=== PATIENT | male | born 1960 | race Caucasian/White ===

== ENCOUNTER → 2018-01-13 | Outpatient (CLI) | payer MEDICAID ==
[~2018-01-13] MED LIST: ADULT LOW DOSE81 MG; ADULT LOW DOSE81 MG PO; ASPIRIN325; ASPIRIN325 PO; BACTRIM DS TAB1 EACH PO; CARVEDILOL6.25 MG PO; CIPRO500 MG PO; CIPROFLOXACIN500 M1 PO; COREG PO; COZAAR 25 MG TA25 M1 PO; EFFIENT10 MG; FLOMAX0.4 MG PO; GABAPENTIN 100100 MG PO; GLIPIZIDE 10 MG10 MG PO; GLUCOPHAGE850 MG PO; GLYBURIDE-METF1 EAC1 PO; HYDROCODON-ACE1 EACH PO; IBUPROFEN 600600 M1; KEFLEX500 M1 PO; LEVAQUIN 500 M500 M7 PO; LIPITOR 20 MG T20 M1 PO; LIPITOR80 MG; LISINOPRIL2.5 MG; LISINOPRIL20 MG PO; NEXIUM; NEXIUM 40 MG CA40 M1 PO; NEXIUM40 MG PO; NITROGLYCERIN0.4 MG; NORCO 5-325 TA1 EACH PO; NYSTATIN15 GM TOP; PEPCID20 MG PO; PLAVIX 75 MG TA75 MG; QUINAPRIL; SIMVASTATIN40 MG; TOPROL XL25 MG; ZANTAC 150MG T150 MG PO; ZOLOFT 50 MG TA50 M1; ZYRTEC 10 MG TA10 MG PO
== END ==
LOC: M.ULTRA 07:59
DX: R16.0 Hepatomegaly, not elsewhere classified (principal); K76.0 Fatty (change of) liver, not elsewhere classified

== ENCOUNTER 2018-02-03 16:38 | Inpatient (IN) | payer MEDICAID ==
[~2018-02-03] VITALS: Ht 182.9 cm; Wt 99.3 kg
[~2018-02-03 16:38] MED LIST changes: -COZAAR 25 MG TA25 M1 PO; -GABAPENTIN 100100 MG PO; -GLYBURIDE-METF1 EAC1 PO; -KEFLEX500 M1 PO; -LIPITOR 20 MG T20 M1 PO; -PEPCID20 MG PO; -ZANTAC 150MG T150 MG PO; -ZYRTEC 10 MG TA10 MG PO
[2018-02-03 16:44] VITALS: BP 135/96
[2018-02-03] MEDS ORDERED: COZAAR 25 MG TA25 M1 PO (16:48)
[2018-02-03] MEDS ORDERED: ZANTAC 150MG T150 MG PO (16:49)
[2018-02-03] MEDS ORDERED: LIPITOR 20 MG T20 M1 PO (16:49)
[2018-02-03] MEDS ORDERED: FLOMAX0.4 MG PO (16:49)
[2018-02-03] MEDS ORDERED: GLYBURIDE-METF1 EAC1 PO (16:50)
[2018-02-03] MEDS ORDERED: ZYRTEC 10 MG TA10 MG PO (16:50)
[2018-02-03] MEDS ORDERED: GABAPENTIN 100100 MG PO (16:50)
[2018-02-03 17:35] LABS: ABSOLUTE BASOPHILS 0.1 thou/uL (0.0-0.2); ABSOLUTE EOSINOPHILS 0.1 thou/uL (0.0-0.7); ABSOLUTE LYMPHOCYTES 2.3 thou/uL (0.8-5.3); ABSOLUTE MONOCYTES 0.8 thou/uL (0.0-1.2); ABSOLUTE NEUTROPHILS 6.7 thou/uL (1.6-8.1); BASOPHILS 1.2 %; EOSINOPHILS 1.2 %; HEMATOCRIT 48.1 % (42.0-52.0); HEMOGLOBIN 16.2 gm/dL (14.0-18.0); LYMPHOCYTES 22.9 %; MCH 30.4 pg (26.0-34.0); MCHC 33.6 g/dL (28.0-37.0); MCV 90.6 fL (80.0-100.0); MONOCYTES 7.8 %; MPV 8.3 fl. (7.2-11.1); NUCLEATED RBCS 0 /100WBC; PLATELET COUNT* 210 thou/uL (150-400); POLYS 66.9 %; RBC 5.31 mil/uL (4.50-6.00); RDW-CV 13.2 % (10.5-14.5); WBC 10.1 thou/uL (4.0-11.0)
[2018-02-03 17:46] LABS: ANION GAP 8 mmol/L (7-16); BUN 8 mg/dL (7-18); CALCIUM 8.1 mg/dL (8.5-10.1); CHLORIDE 99 mmol/L (98-107); CO2 26 mmol/L (21-32); CREATININE 0.9 mg/dL (0.6-1.3); GLUCOSE 295 mg/dL (70-99); POTASSIUM 3.6 mmol/L (3.5-5.1); SODIUM 133 mmol/L (136-145)
[2018-02-03 17:53] LABS: ALBUMIN 3.2 g/dL (3.4-5.0); ALKALINE PHOSPHATASE 85 U/L (46-116); MAGNESIUM 1.6 mg/dL (1.8-2.4); SGOT 25 U/L (15-37); SGPT 57 U/L (30-65); TOTAL BILIRUBIN 0.8 mg/dL (<0.1-1.0); TOTAL PROTEIN 7.7 g/dL (6.4-8.2); TROPONIN-I LEVEL <0.06 ng/mL (<0.06)
[2018-02-03 19:55] LABS: URINE BILIRUBIN NEGATIVE (Negative); URINE BLOOD NEGATIVE (Negative); URINE CLARITY CLEAR; URINE COLOR YELLOW; URINE GLUCOSE-RANDOM 3+ (Negative); URINE KETONES NEGATIVE (Negative); URINE LEUKOCYTES NEGATIVE (Negative); URINE NITRITE NEGATIVE (Negative); URINE PROTEIN NEGATIVE (Negative); URINE SPECIFIC GRAVITY 1.015 (1.005-1.030)
[2018-02-04 05:45] VITALS: BP 112/74
[2018-02-04 06:30] VITALS: BP 131/89
[2018-02-04 08:24] VITALS: BP 122/73
[2018-02-04 12:50] VITALS: BP 104/65
[2018-02-04 16:10] VITALS: BP 106/62
[2018-02-04 20:00] VITALS: BP 116/71
[2018-02-05] VITALS: BP 88/51
[2018-02-05 04:00] VITALS: BP 115/81
[2018-02-05 04:40] LABS: HEMATOCRIT 43.4 % (42.0-52.0); HEMOGLOBIN 14.6 gm/dL (14.0-18.0); MCH 30.2 pg (26.0-34.0); MCHC 33.6 g/dL (28.0-37.0); MCV 89.7 fL (80.0-100.0); MPV 8.3 fl. (7.2-11.1); RBC 4.84 mil/uL (4.50-6.00); RDW-CV 13.1 % (10.5-14.5); WBC 9.1 thou/uL (4.0-11.0)
[2018-02-05 04:58] LABS: ALBUMIN 2.9 g/dL (3.4-5.0); CALCIUM 8.4 mg/dL (8.5-10.1); CREATININE 0.9 mg/dL (0.6-1.3); POTASSIUM 4.4 mmol/L (3.5-5.1); TOTAL BILIRUBIN 0.8 mg/dL (<0.1-1.0); TOTAL PROTEIN 6.4 g/dL (6.4-8.2)
[2018-02-05 09:00] VITALS: BP 122/74
--- NOTE | 2018-02-05 13:04 | EKG ---
[place] [address] ELECTROCARDIOGRAM REPORT Name: KEVIN BPATISTE Room: [address] IN [facility]#: [id number] Admission: 02/04/18 Attend Phys: Molly Mallory Discharge: Date of : 60 Report #: [id number] THIS REPORT FOR: //name// [facility] ED Test Date: 2018-02-03 Test Time: 17:43:15 Pat Name: KEVIN BAPTISTE Department: Room: Gender: M Hospital Intern: JAQUAN : 1960 Requested By: Dawn Joshua Order Number: [id number] MD: Bernard Ramos Measurements Intervals [place] Rate: 90 P: 28 UT: 164 QRS: -49 QRSD: 104 T: 31 QT: 343 QTc: 420 Interpretive Statements Sinus rhythm Inferior infarct, old Compared to ECG 07/20/2016 01:10:49 Ventricular premature complex(es) no longer present Myocardial infarct finding still present Electronically Signed On 02-05-2018 13:04:36 CDT by Bernard Ramos [email or web address] <ELECTRONICALLY SIGNED> By: Bernard Ramos MD, [facility] 02/05/18 1304 1743 1743 Bernard Ramos MD, [facility] /EPI
[2018-02-05 13:24] VITALS: BP 133/79
[2018-02-05] MEDS ORDERED: PEPCID20 MG PO (14:53)
[2018-02-05] MEDS ORDERED: KEFLEX500 M1 PO (14:55)
[2018-02-05 14:56] VITALS: BP 133/79
== END 2018-02-05 15:17 | disposition home or self-care (01) | DRG 103 ==
LOC: M.ERS 16:38 → M.2W 02-04 04:55 → M.TBA-ER 02-04 04:55 → M.2W 02-04 06:10
PROVIDERS: Internal Medicine; Physician Assistant Surgical; ADMIT Internal Medicine
DX: G43.909 Migraine, unspecified, not intractable, without status migrainosus (principal); E87.1 Hypo-osmolality and hyponatremia; E78.5 Hyperlipidemia, unspecified; I10 Essential (primary) hypertension; E11.65 Type 2 diabetes mellitus with hyperglycemia; E04.1 Nontoxic single thyroid nodule; J32.9 Chronic sinusitis, unspecified; F17.210 Nicotine dependence, cigarettes, uncomplicated; I25.2 Old myocardial infarction; Z95.5 Presence of coronary angioplasty implant and graft; Z79.82 Long term (current) use of aspirin; Z79.899 Other long term (current) drug therapy; Z87.442 Personal history of urinary calculi

== ENCOUNTER → 2018-03-11 | Outpatient (CLI) | payer MEDICAID ==
[~2018-03-11] MED LIST changes: +COZAAR 25 MG TA25 M1 PO; +GABAPENTIN 100100 MG PO; +GLYBURIDE-METF1 EAC1 PO; +KEFLEX500 M1 PO; +LIPITOR 20 MG T20 M1 PO; +PEPCID20 MG PO; +ZANTAC 150MG T150 MG PO; +ZYRTEC 10 MG TA10 MG PO
== END ==
LOC: M.ULTRA 13:00
DX: E04.1 Nontoxic single thyroid nodule (principal)

== ENCOUNTER 2019-02-27 03:57 | Inpatient (IN) | payer MEDICAID ==
[~2019-02-27] VITALS: Ht 182.9 cm; Wt 107.5 kg
[2019-02-27 04:04] VITALS: BP 142/79
[2019-02-27] MEDS ORDERED: OMEPRAZOLE40 MG PO (04:11)
[2019-02-27] MEDS ORDERED: JANUVIA 50 MG T50 M1 PO (04:12)
[2019-02-27] MEDS ORDERED: WELLBUTRIN 75 M75 M1 PO (04:12)
[2019-02-27] MEDS ORDERED: COREG6.25 MG PO (04:13)
[2019-02-27 04:31] LABS: RBC 5.27 mil/uL (4.50-6.00); RDW-CV 13.4 % (10.5-14.5)
[2019-02-27 04:33] LABS: ABSOLUTE BASOPHILS 0.1 thou/uL (0.0-0.2); ABSOLUTE EOSINOPHILS 0.1 thou/uL (0.0-0.7); ABSOLUTE LYMPHOCYTES 1.7 thou/uL (0.8-5.3); ABSOLUTE MONOCYTES 1.1 thou/uL (0.0-1.2); ABSOLUTE NEUTROPHILS 8.9 thou/uL (1.6-8.1); BASOPHILS 1.1 %; EOSINOPHILS 0.9 %; HEMATOCRIT 46.6 % (42.0-52.0); HEMOGLOBIN 15.2 gm/dL (14.0-18.0); LYMPHOCYTES 14.1 %; MCH 28.9 pg (26.0-34.0); MCHC 32.7 g/dL (28.0-37.0); MCV 88.5 fL (80.0-100.0); MPV 8.5 fl. (7.2-11.1); NUCLEATED RBCS 0 /100WBC; PLATELET COUNT* 205 thou/uL (150-400); POLYS 74.9 %; WBC 11.8 thou/uL (4.0-11.0)
[2019-02-27 04:47] LABS: CALCIUM 8.8 mg/dL (8.5-10.1); CREATININE 1.2 mg/dL (0.6-1.3); POTASSIUM 3.9 mmol/L (3.5-5.1)
[2019-02-27 04:55] LABS: ALBUMIN 3.1 g/dL (3.4-5.0); TOTAL PROTEIN 7.6 g/dL (6.4-8.2)
[2019-02-27 06:08] LABS: URINE BILIRUBIN NEGATIVE (Negative); URINE BLOOD 3+ (Negative); URINE CLARITY CLEAR; URINE COLOR YELLOW; URINE GLUCOSE-RANDOM 2+ (Negative); URINE KETONES NEGATIVE (Negative); URINE LEUKOCYTES-REFLEX 1+ (Negative); URINE NITRITE-REFLEX NEGATIVE (Negative); URINE PROTEIN NEGATIVE (Negative); URINE SPECIFIC GRAVITY 1.015 (1.005-1.030); URINE UROBILINOGEN 0.2 E.U./dl (0.2-1.0)
[2019-02-27 06:15] LABS: BACTERIA-REFLEX >30 Many /HPF (None Seen); CASTS None Seen /LPF (None Seen); CRYSTALS None Seen /LPF (None Seen); MUCUS 0-3 Light strn/LPF (None Seen); SQUAMOUS 0-3 Few /LPF (0-3); URINE WBC-REFLEX 6-15 Few /HPF (0-5)
[2019-02-27 10:57] VITALS: BP 109/71
[2019-02-27 11:35] LABS: PROTIME 10.7 Seconds (9.20-11.50)
--- NOTE | 2019-02-27 13:26 | NUR ---
PT PLACED ON HOSPITAL BED
--- NOTE | 2019-02-27 13:40 | NUR ---
CONSULT CALLED TO UROLOGY
[2019-02-27 14:36] VITALS: BP 90/54
[2019-02-27 17:06] VITALS: BP 81/48
[2019-02-27 21:00] VITALS: BP 109/67
--- NOTE | 2019-02-27 21:00 | NUR ---
ARRIVED FROM PACU PER BED AT 2044, RECEIVED REPORT. PT DROWSY BUT AWAKEN EASILY. CAIN PATENT WITH ROYCE URINE. IV FLUIDS INFUSING. TELEMETRY APPLIED SHOWING SR. SEE ADMISSION ASSESSMENT AND HX. GIRLFRIEND AT BEDSIDE. WILL CONT TO MONITOR AND ASSIST NEEDED.
[2019-02-28] VITALS: BP 109/64
[2019-02-28 04:00] VITALS: BP 114/76
[2019-02-28 05:16] LABS: CREATININE 1.7 mg/dL (0.6-1.3); POTASSIUM 3.8 mmol/L (3.5-5.1)
[2019-02-28 05:22] LABS: HEMATOCRIT 39.2 % (42.0-52.0); MCH 29.4 pg (26.0-34.0); MCHC 33.5 g/dL (28.0-37.0); MCV 87.7 fL (80.0-100.0); MPV 9.4 fl. (7.2-11.1); RBC 4.46 mil/uL (4.50-6.00); RDW-CV 13.4 % (10.5-14.5); WBC 15.6 thou/uL (4.0-11.0)
[2019-02-28 05:36] LABS: MAGNESIUM 0.7 mg/dL (1.8-2.4)
[2019-02-28 05:38] LABS: HEMOGLOBIN 13.1 gm/dL (14.0-18.0)
--- NOTE | 2019-02-28 05:43 | NUR ---
AWAKE OCC DURING NIGHT. ASSISTED TO BSC FOR BM. CAIN TO BE REMOVED. PO PAIN MED GIVEN FOR BLADDER SPASM WITH LITTLE RELIEF. IV PAIN MED GIVEN EARLIER AND PT WAS ABLE TO SLEEP. TELEMETRY CONT TO SHOW SR. HS GOALS OF REST AND SAFETY ACHIEVED. HOURLY ROUNDING OBSERVED.
[2019-02-28 08:15] VITALS: BP 128/65
--- NOTE | 2019-02-28 09:42 | NUR ---
ASSUMMED CARE OF PT THIS AM AROUND 07- KIER TENDER IN PLACE ORDERED, TRACING ST-UPON ASSESSMENT PT NOTED TO BE RESTING IN BED, EYES CLOSED- PT ARROUSABLE A&O X4- CONTINENT OF BOWEL AND BLADDER- CAIN REPORTED TO HAVE BEEN D/C'D ON PRIOR SHIFT, PT VOIDING OKAY THIS AM REPORTS BURNING FEELING- LCTA, RESP EVEN AND UN-LABORED- VSS, O2 SAT 92% ON RA- ABD SOFT/ROUND/NON-TENDER, BS X4 QUADS- LAST BM REPORTED ON PRIOR SHIFT- IV NOTED TO RIGHT AC INTACT, IVF INFUSSING PRESCIBED; ABT PRESCIBED THIS AM- MG CURRENTLY BEING REPLACED PER IV PRESCIBED- CALL LIGHT AND PERSONAL BELONGINGS WITH IN REACH- PT MAKES NEEDS KNOWN- ALL NEEDS MET AT THIS TIME-WCJERED
--- NOTE | 2019-02-28 10:13 | EKG ---
[place] [address] ELECTROCARDIOGRAM REPORT Name: KEVIN BAPTISTE Room: [address] ADM IN .R.#: [id number] Admission: 02/27/19 Attend Phys: Julian Schwab, Discharge: Date of : 60 Report #: [id number] THIS REPORT FOR: //name// [facility] Test Date: 2019-02-27 Test Time: 17:18:17 Pat Name: KEVIN BAPTISTE Department: Room: [facility] Gender: M Shoe Lay Out Planner: NII : 1960 Requested By: Denny Mckeon Order Number: [id number] Freida MD: Denny Choi Measurements Intervals [place] Rate: 87 P: 38 ME: 163 QRS: -24 QRSD: 101 T: 40 QT: 364 QTc: 438 Interpretive Statements Sinus rhythm Inferior infarct, old, possible Compared to ECG 02/03/2018 17:43:15 No significant changes Electronically Signed On 02-28-2019 10:13:26 CDT by Denny Choi [email or web address] <ELECTRONICALLY SIGNED> By: Denny Choi MD, [facility] 02/28/19 1013 17 Denny Choi MD, [facility] /EPI
--- NOTE | 2019-02-28 10:34 | NUR ---
CM COMPLETED INITIAL ASSESSMENT TO DISCUSS D/C PLANNING AND EDUCATE ON THE ROLE OF CM. PT LYING IN BED AWAKE UPON ARRIVAL. PT A&OX4, PT STATES HE IS RETIRED. LIVES AT HOME W/ HIS GIRLFRIEND, JASON, STATES HE HAS ADEQUATE SUPPORT. INDEPENDENT W/ADLS. HAS HX W/HH IN THE PAST; HOWEVER, DOES NOT RECALL WHICH COMPANY. NO HX W/SNF. PT STATES, "MIGHT HAVE A WALKER" BUT DOES NOT USE. PT PLANS TO D/C TO HOME AND DOES NOT HAVE D/C NEEDS AT THIS TIME. CM TO REMAIN AVAILABLE TO ASSIST NEEDED.
[2019-02-28 13:24] VITALS: BP 97/63
[2019-02-28 16:00] VITALS: BP 107/70; BP 138/87
--- NOTE | 2019-02-28 18:10 | NUR ---
PT CURRENTLY RESTING IN BED, FAMILY AT SIDE VISITING-STRUCTURAL DRAFTER IN PLACE ORDERED, TRACING SR- POOR PO INTAKE NOTED WITH MEALS- PRN TYLENOL AT 1508 FOR C/O HEADACHE PARTIAL EFFECTIVE, ENVIRONMENT DARK/QUIET- CIPRO INCREASED TO 400MG BID THIS SHIFT- MG REPLACED ORDERED, REDRAW NOTED WNL AT 2.1- CALL LIGHT AND PERSONAL BELONGINGS WITH IN REACH- PT MAKES NEEDS KNOWN- ALL NEEDS MET AT THIS TIME-WCTM
[2019-02-28 20:00] VITALS: BP 121/76
[2019-03-01] VITALS: BP 126/72
[2019-03-01 04:00] VITALS: BP 105/69
[2019-03-01 05:42] LABS: HEMATOCRIT 37.2 % (42.0-52.0); HEMOGLOBIN 12.6 gm/dL (14.0-18.0); MCH 29.7 pg (26.0-34.0); MCHC 33.9 g/dL (28.0-37.0); MCV 87.6 fL (80.0-100.0); MPV 9.2 fl. (7.2-11.1); RBC 4.25 mil/uL (4.50-6.00); RDW-CV 13.4 % (10.5-14.5); WBC 14.1 thou/uL (4.0-11.0)
[2019-03-01 05:50] LABS: ALBUMIN 2.3 g/dL (3.4-5.0); CALCIUM 7.6 mg/dL (8.5-10.1); CREATININE 1.3 mg/dL (0.6-1.3); MAGNESIUM 1.9 mg/dL (1.8-2.4); POTASSIUM 3.2 mmol/L (3.5-5.1); TOTAL BILIRUBIN 1.8 mg/dL (<0.1-1.0); TOTAL PROTEIN 6.4 g/dL (6.4-8.2)
[2019-03-01 07:56] VITALS: BP 114/79
--- NOTE | 2019-03-01 10:26 | EKG ---
[place] [address] ELECTROCARDIOGRAM REPORT Name: KEVIN BAPTISTE Room: [address] ADM IN .R.#: [id number] Admission: 02/27/19 Attend Phys: Julian Schwab, Discharge: Date of : 60 Report #: [id number] THIS REPORT FOR: //name// [facility] Test Date: 2019-02-28 Test Time: 23:57:26 Pat Name: KEVIN BAPTISTE Department: Room: [address] Gender: M Synthetic Department Supervisor: APARNA : 1960 Requested By: Julian Schwab Order Number: [id number] Freida MD: Adolfo Hutchinson Measurements Intervals [place] Rate: 95 P: 33 CT: 165 QRS: -49 QRSD: 102 T: -1 QT: 334 QTc: 420 Interpretive Statements Sinus rhythm Atrial premature complex Inferior infarct, old Compared to ECG 02/27/2019 17:18:17 Atrial premature complex(es) now present Myocardial infarct finding still present Electronically Signed On 03-01-2019 10:25:50 CDT by Adolfo Hutchinson [email or web address] <ELECTRONICALLY SIGNED> By: Adolfo Hutchinson MD, [facility] 03/01/19 1025 2357 2357 Adolfo Hutchinson MD, [facility] /EPI
--- NOTE | 2019-03-01 10:28 | NUR ---
ASSUMED CARE OF PT AT 0730. PT RESTING IN BED. PT A&0X4, DENIES ANY PAIN OR SHORTNESS OF BREATH AT THIS TIME. PT TRACING SR WITH PACS ON THE DIESEL ELECTRICIAN. PT ON RA UPON ASSESSMENT SAT 86%. PT PLACED ON 3L NC TO KEEP SATURATION ABOVE 92%. EDUCATION GIVEN REGARDING COMPLIANCE WITH OXYGEN. PT COMMUNICATES UNDERSTANDING. PT UP AD ILIA IN ROOM. IVF. PT GOAL FOR TODAY IS PAIN MGMT, REPLACE POTASSIUM PER ELECTROLYTE PROTOCOL AND IVF, IV ABX. AM ASSESSMENT CHARTED. MEDICATIONS PER NOV. PT REPOSITIONS SELF. HOURLY ROUNDING OBSERVED. BED IN LOW POSITION. CALL LIGHT WITHIN REACH. WILL CONTINUE PLAN OF CARE.
[2019-03-01 12:55] VITALS: BP 108/66
[2019-03-01 17:11] VITALS: BP 115/64
--- NOTE | 2019-03-01 18:27 | NUR ---
NO ACUTE CHANGES THROUGHOUT SHIFT. REFER TO CHARTING. PT SLOWLY PROGRESSING TOWARDS GOALS. PT DENIES ANY PAIN OR SHORTNESS OF BREATH THROUGHOUT AFTERNOON. PT CONTINUES TO TRACE SR WITH PACS ON THE RECORDER HELPER SEISMOGRAPH. ON 3L NC SAT UPPER 90'S. IVF. PT UP AD ILIA IN ROOM. PT FAMILY AT BEDSIDE THIS AFTERNOON. MEDICATIONS PER NOV. PT REPOSITIONS SELF. HOURLY ROUNDING OBSERVED. BED IN LOW POSITION. CALL LIGHT WITHIN REACH. WILL CONTINUE PLAN OF CARE.
[2019-03-01 21:00] VITALS: BP 107/57
[2019-03-02] VITALS (9 sets, daily range): BP systolic 93–163; BP diastolic 56–94
--- NOTE | 2019-03-02 06:51 | NUR ---
PT SLEPT MOST OF SHIFT. ASSESSMENT DOCUMENTED. MEDS GIVEN PER E-NOV. IV PATENT, FLUIDS INFUSING. TYLENOL GIVEN FOR HEADACHE. PT LETHARGIC AND SWEATING THIS SHIFT. BLOOD SUGAR CHECKED AND JUICE GIVEN, PT REPORTED FEELING BETTER. PTS DAUGHTER REQUESTING FOR TO CALL AND TALK WITH HER TODAY, WILL CONTINUE WITH PLAN OF CARE.
--- NOTE | 2019-03-02 12:12 | NUR ---
ASSUMED PT CARE REPORT RECEIVED FROM NURSE. PT IS AOX4, TRACING SR ON ARCH PAD CEMENTER. ON 2 L NC, O2 SATURATION IS 96%. RESPIRATORY THERAPIST THEN CAME UP AND ASSESSED PT WITHOUT OXYGEN. PT WAS QUALIFIED TO REMAIN ON RA. SATURATION WAS ABOVE 95%. VS TAKEN. BP 93/56, BP MEDICATION NOT GIVEN THIS MORNING. NEW IV PLACED IN L FOREARM BY INFUSION THERAPY. PT TO BE DISCHARGED , DISCHARGE ORDER IS PENDING. PT HAD A FEELING OF COLD AFTER USING THE RESTROOM. PT TEMPERATURE AT THAT TIME WAS 97.4. WILL CONTINUE TO MONITOR PT
[2019-03-02] MEDS ORDERED: COLACE100 MG PO (12:48)
[2019-03-02] MEDS ORDERED: CIPRO500 M1 PO (12:58)
[2019-03-02] MEDS ORDERED: HYOSCYAMINE0.125 M1 SUBLING (13:00)
[2019-03-02] MEDS ORDERED: NORCO 5-325 TA1 EAC1 PO (13:03)
--- NOTE | 2019-03-02 13:50 | NUR ---
pt still has chills, states he is feeling cold. no temperature. temp 98.9. pt voiced concerns about his hospital stay. administration has been notified. pt seems to be undecided about wanting to leave or not.
--- NOTE | 2019-03-02 13:50 | NUR ---
Pt to dc home today with . IFRAH spoke with pt and pt about HH services to follow; pt was sleeping with head under the covers and pt expressed pt "just wants to go home" despite pt concerns about if pt is really ready. Pt preference to [facility] services; IFRAH faxed referral and orders to [facility] ph [phone] fax [phone].
--- NOTE | 2019-03-02 14:49 | NUR ---
pt decided to stay. hospitalist notofied. will continue with pt care. temp at 99.1,
--- NOTE | 2019-03-02 17:54 | NUR ---
PT STATED THAT HE WAS NOT HAPPY WITH HIS STAY HERE THIS IS THE REASON WHY HE WANTED TO GO HOME. BUT HIS TEMPERATURE IS GETTING HIGHER, SEEMS LIKE HE IS HAVING A FEVER. SO HE DECIDED TO STAY. BUT PT REFUSED LAB TO BE DRAWNED AND TOLD [facility] THAT SHE DOES NOT WANT TO KICK A WOMAN . SO LABS WERE NOT DRAWN DUE TO PT REFUSAL. NURSE IN CHARGE AND ADMINISTRATION WAS MADE AWARE OF PT COMPLAINT. MESSAGE LEFT TO ADMINISTRTION OFFICE TO [facility].
--- NOTE | 2019-03-02 18:05 | NUR ---
TEMP RECHECKED .TEMP OF 99.9. DR NOTIFIED. NEXT TYLENOL DOSE DUE AT 1999
--- NOTE | 2019-03-02 18:06 | NUR ---
TEMP RECHECKED AT 99.9. NOTIFIED. COLD COMPRESS ON. NEXT TYLENOL DOSE DUE AT 1999
[2019-03-03] VITALS: BP 120/73
[2019-03-03 04:02] VITALS: BP 125/62
--- NOTE | 2019-03-03 04:03 | NUR ---
ASSUMED CARE OF PT AT 1900. PT IS ALERT AND OREINTED. VSS. PERRLA. NO COMPLAINTS OF PAIN. PT IS REFUSING ALL LAB STICKS. PT IS IN SINUS RYTHM ON THE TELEMETRY. PT IS RESTING COMFORTABLY IN BED. RESPIRATIONS ARE EVEN AND NONLABORED. WILL CONTINUE TO MONITOR PT.
[2019-03-03 08:00] VITALS: BP 141/85
[2019-03-03 11:05] VITALS: BP 163/94
[2019-03-03 12:46] VITALS: BP 135/92
[2019-03-03] MEDS ORDERED: SENNA S TABLET1 EACH PO (13:16)
--- NOTE | 2019-03-03 13:25 | NUR ---
Pt to dc home today actually, pt decided best to remain in hospital one more day for doctor's care and recommendations over all. Pt to dc home with . SW spoke with pt and pt who are in agreement with plan. [facility] nurse will meet with pt tomorrow; IFRAH called and spoke with intake at to confirm. [facility] [phone]
[2019-03-03 13:27] VITALS: BP 163/94
--- NOTE | 2019-03-03 13:42 | NUR ---
ASSUMED PT CARE REPORT RECEIVED FROM NURSE PT IS AOX4 SR ON POLICE OFFICER BOOKING. TEMP 97.8. VS STABLE. ACCUCHECK 81. NO INSULIN OR BLOOD HYPERGLYCEMIC PILLS GIVEN. PT IS UP AD ILIA. PENDING DISCHARGE. PT LEFT FLOOR AT 1337 . DISCHARGE INSTRUCTION GIVEN. NO FURTHER QUESTION.
--- NOTE | 2019-03-04 09:10 | OP ---
[facility] [address] [place] [address] OPERATIVE REPORT Name: EMILEKEVINJURGEN MENDOZA Room: [address] IN M.R.#: [id number] Admission: 02/27/19 Attend Phys: Julian Schwab, Discharge: 03/03/19 Date of : 60 Report #: [id number] THIS REPORT FOR: //name// CC: Fitz Schwab DATE OF SERVICE: 02/27/2019 PREOPERATIVE DIAGNOSES: 1. Right ureteral calculus. 2. Hydronephrosis. 3. Urinary tract infection/pyelonephritis. POSTOPERATIVE DIAGNOSES: 1. Right ureteral calculus. 2. Hydronephrosis. 3. Urinary tract infection/pyelonephritis. PROCEDURE: Cystoscopy, right retrograde pyelogram, right ureteral stent placement. SURGEON: Adi Marie M.D. ANESTHESIA: General. SPECIMENS: None. ESTIMATED BLOOD LOSS: None. DRAINS: A 6 x 20 right ureteral stent, 16-Ukrainian Ortiz. SPECIMENS: Urine from right renal pelvis for culture and sensitivity. COMPLICATIONS: None. INDICATIONS: This is a 59-year-old male admitted with intractable flank pain and fever, signs of UTI/pyelonephritis. CT scan reveals an 8 mm right lower pole calculus as well as an obstructing 6 mm right ureteropelvic junction calculus. Alternatives for management were discussed and I recommended urgent decompression of his upper tract with deferral of definitive stone management until UTI is eradicated. Options for this were discussed in detail and he has decided to undergo cystoscopy with right retrograde pyelogram and right ureteral stent placement. The risks of procedure were explained including but not limited to bleeding, anesthesia, cardiopulmonary and vascular events, worsening infection/septic shock, injuries to urethra, bladder, ureter, possible inability to bypass obstruction. We also discussed stent symptoms and the importance of [address] [address] OPERATIVE REPORT Name: EMILEKEVINJURGEN MENDOZA Room: [address]#: [id number] Admission: 02/27/19 Attend Phys: Julian Schwab, Discharge: 03/03/19 Date of : 60 Report #: [id number] timely followup regarding any stent left in place as well as for definitive management of his stones. We discussed the possibility of stricture formation. He voices clear understanding of all this and wants to proceed. DESCRIPTION OF PROCEDURE: The patient was on perioperative IV Cipro. After induction of general anesthesia, he was positioned, prepped and draped in the lithotomy position. Time-out procedure was performed. Cystourethroscopy was performed with 30 and 70 degree scopes and a 21-Ukrainian sheath. There is mild narrowing of the distal urethra, which was dilated with obturators. There are no intrinsic urethral lesions. The remainder of the urethra was unremarkable with mild bilateral lobe impingement in the prostatic urethra. The bladder was entered and systematically examined with 30 and 70 degree scopes. The ureteral orifices were orthotopic. No blood was seen from either. Bladder was mildly trabeculated. Fluoroscopic interrogation revealed calcific densities over the lower aspect of the right renal shadow and the expected course of the proximal right ureter. A sensor wire was advanced per the right ureteral orifice and up to the renal pelvis with fluoroscopic guidance by passing the stone. A 5-Ukrainian ureteral catheter was advanced over the wire and into the renal pelvis. 8 mL of bloody and purulent urine were aspirated and sent for culture. A pullout retrograde pyelogram was then performed revealing some dilation of the renal pelvis as well as a filling defect in the right lower pole and a filling defect in the region of the ureteropelvic junction. The remainder of the ureter was unremarkable. With fluoroscopic guidance, the wire was passed back into the right renal pelvis. This was used for placement of a 6 x 28 right ureteral stent with good position confirmed in the renal pelvis fluoroscopically and in the bladder visually. Drainage was noted from the stent. The bladder was left partially filled and the scope was removed. Lidocaine jelly was given per urethra. A 16-Ukrainian Ortiz catheter was placed and secured. Drainage from the catheter was clear. Plan will be for the patient to undergo a voiding trial in the morning. He will then undergo a course of culture-directed antibiotic therapy with deferred management of his stone. <ELECTRONICALLY SIGNED> By: Adi Marie MD 03/04/19 0910 [id number] Marie MD /nt
--- NOTE | 2019-03-06 10:40 | D ---
[address] [address] DISCHARGE SUMMARY Name: EMILEKEVINJURGEN MENDOZA Room: [address] IN M.R.#: [id number] Admission: 02/27/19 Attend Phys: Julian Schwab, Discharge: 03/03/19 Date of : 60 Report #: [id number] THIS REPORT FOR: //name// CC: Fitz Schwab DATE OF SERVICE: 03/02/2019 DISCHARGE DIAGNOSES: 1. Right ureteropelvic junction calculus with right hydronephrosis, status post cystoscopy with right retrograde pyelogram and right ureteral stent placement. 2. Right nonobstructive renal calculi. 3. Urinary tract infection/right pyelonephritis. 4. History of coronary artery disease. 5. Chronic obstructive pulmonary disease exacerbation. 6. Hypertension. 7. Diabetes. HOSPITAL COURSE: The patient is a 59-year-old gentleman who presented to us here complaining of intermittent right flank abdominal pain, nausea and subjective fever and chills. He was then seen in the Emergency Department, had a renal CAT scan done, which showed a 6 mm calculus within the right proximal, right ureter resulting in moderate right hydronephrosis and [id number] perinephric soft tissue stranding with additional calculi within the right kidney. The patient underwent a retrograde pyelogram that showed right-sided retrograde pyelogram with stent placement. Dr. Marie saw the patient and did a cystoscopy with right RPG and stent placement. Post-cystoscopy, the patient did have some episodes of fever. He has had urine cultures grew Klebsiella pneumoniae. Blood cultures are negative. The patient still had some on and off fever at night time. However, he is insisting on going home and in fact, he had a fight with the , but the wanted him to stay. I recommended for him to stay given the fever, but he was insistent on going home. So, we will discharge the patient home per his request. He agreed to do home health at least where nurse will check on him. He tells me that he is homebound right now and he does not really go out. He will then be discharged to home per his request with continued antibiotic therapy at home to complete 14 days. DISCHARGE PHYSICAL EXAMINATION: VITAL SIGNS: Temperature is 36.6, heart rate 77, respirations 16, blood pressure 150/94, 96% on room air. GENERAL: The patient is alert, oriented x 3, not in acute respiratory distress. HEAD, EYES, EARS, NOSE, AND THROAT: Normocephalic and atraumatic. Nares patent. Clear oropharynx. NECK: Supple. No lymphadenopathy. CARDIOVASCULAR: Normal rate, regular rhythm. No murmurs noted. RESPIRATORY: Clear to auscultation bilaterally. No wheeze, [place] [address] DISCHARGE SUMMARY Name: KEVIN BAPTISTE Room: [address] IN [facility]#: [id number] Admission: 02/27/19 Attend Phys: Julian Schwab, Discharge: 03/03/19 Date of : 60 Report #: [id number] GASTROINTESTINAL: Abdomen is soft, nontender, nondistended. Good bowel sounds. No organomegaly. GENITOURINARY: Deferred. MUSCULOSKELETAL: Good strength. NEUROLOGIC: Grossly normal. PSYCHIATRIC: The patient is calm and cooperative. The patient will be discharged to home per his request. We will set up with home health. Notify physician if there is fever of 38, pain uncontrolled by medication, shortness of breath, chest pain. DIET: Cardiac diet. ACTIVITY: Resume usual activity. DISCHARGE MEDICATIONS: Include aspirin 81 mg daily, atorvastatin 20 mg daily, bupropion 75 mg b.i.d., carvedilol 6.25 b.i.d., docusate sodium 100 mg daily, gabapentin 100 mg b.i.d., glyburide, metformin 1 each p.o. b.i.d., losartan 25 mg daily, omeprazole 40 mg daily, sitagliptin 50 mg b.i.d., tamsulosin 0.4 mg daily, 10 mg daily p.r.n. and ciprofloxacin 500 mg p.o. b.i.d. x 14 days. I spent at least 38 minutes taking care of this patient today. <ELECTRONICALLY SIGNED> By: Nancy Perrin MD 03/06/19 1040 1211 [id number] Perrin MD /[facility]
== END 2019-03-03 13:36 | disposition home health service (06) | DRG 854 ==
LOC: M.ERS 03:57 → M.TBA-ER 06:13 → M.2W 06:13
PROVIDERS: Personal Emergency Response Attendant; ADMIT Family Medicine
PROC: 0T768DZ Dilation of Right Ureter with Intraluminal Device, Via Natural or Artificial Opening Endoscopic (ICD-10-PCS; principal; 2019-02-27)
PROC: BT1D1ZZ Fluoroscopy of Right Kidney, Ureter and Bladder using Low Osmolar Contrast (ICD-10-PCS; principal; 2019-02-27)
DX: A41.9 Sepsis, unspecified organism (principal); N13.6 Pyonephrosis; J44.1 Chronic obstructive pulmonary disease with (acute) exacerbation; I25.10 Atherosclerotic heart disease of native coronary artery without angina pectoris; I10 Essential (primary) hypertension; E78.5 Hyperlipidemia, unspecified; E83.42 Hypomagnesemia; E11.65 Type 2 diabetes mellitus with hyperglycemia; Z87.442 Personal history of urinary calculi; I25.2 Old myocardial infarction; Z95.5 Presence of coronary angioplasty implant and graft; Z88.6 Allergy status to analgesic agent; Z79.82 Long term (current) use of aspirin; Z79.899 Other long term (current) drug therapy

== ENCOUNTER 2019-08-21 14:58 | Emergency (ER) | payer MEDICAID ==
[~2019-08-21] VITALS: Ht 182.9 cm; Wt 109.3 kg
[~2019-08-21 14:58] MED LIST changes: +CIPRO500 M1 PO; +COLACE100 MG PO; +COREG6.25 MG PO; +HYOSCYAMINE0.125 M1 SUBLING; +JANUVIA 50 MG T50 M1 PO; +NORCO 5-325 TA1 EAC1 PO; +OMEPRAZOLE40 MG PO; +SENNA S TABLET1 EACH PO; +WELLBUTRIN 75 M75 M1 PO
[2019-08-21] MEDS ORDERED: BACTRIM DS TAB1 EACH PO (15:41)
[2019-08-21] MEDS ORDERED: KEFLEX500 M1 PO (15:41)
[2019-08-21] MEDS ORDERED: TYLENOL WITH CO1 TA1 PO (16:14)
[2019-08-21 16:29] VITALS: BP 135/85
== END 2019-08-21 16:30 | disposition home or self-care (01) ==
LOC: M.ERS 14:58
DX: L02.413 Cutaneous abscess of right upper limb (principal); I10 Essential (primary) hypertension; E11.9 Type 2 diabetes mellitus without complications; Z88.5 Allergy status to narcotic agent; Z87.442 Personal history of urinary calculi; Z95.5 Presence of coronary angioplasty implant and graft

== ENCOUNTER 2019-11-03 09:06 | Emergency (ER) | payer MEDICAID ==
[~2019-11-03] VITALS: Ht 182.9 cm; Wt 108.9 kg
--- NOTE | ~2019-11-03 | EKG ---
[place] [address] ELECTROCARDIOGRAM REPORT Name: KEVIN BAPTISTE Room: [facility]#: [id number] Admission: 11/03/19 Attend Phys: Discharge: 11/03/19 Date of : 60 Date of Service: 11/03/19 0949 Report #: [id number] THIS REPORT FOR: cc: Fitz Baxter Ahmad W. DO Epiphany, Epiphany MD ~ THIS REPORT FOR: //name// [facility] ED Test Date: 2019-11-03 Test Time: 09:49:55 Pat Name: KEVIN BAPTISTE Department: Room: Gender: M Director Of Student Life: : 1960 Requested By: Coleman Brian Order Number: [id number] MD: Measurements Intervals [place] Rate: 88 P: 34 [place]: 163 QRS: -3 QRSD: 102 T: 27 QT: 383 QTc: 464 Interpretive Statements Sinus rhythm Paired ventricular premature complexes Aberrant conduction of SV complex(es) Inferior infarct, old Compared to ECG 02/28/2019 23:57:26 Ventricular premature complex(es) now present Aberrant conduction of supraventricular beat(s) now present Atrial premature complex(es) no longer present Myocardial infarct finding still present [email or web address] By: 0949 0949 Epiphany MD Leif /RADHA
[~2019-11-03 09:06] MED LIST changes: +TYLENOL WITH CO1 TA1 PO
[2019-11-03] MEDS ORDERED: FLOMAX0.4 MG PO (09:22)
[2019-11-03] MEDS ORDERED: JANUVIA50 MG PO (09:22)
[2019-11-03] MEDS ORDERED: COZAAR 25 MG TA25 M1 PO (09:22)
[2019-11-03 09:51] LABS: NUCLEATED RBCS 0 /100WBC
[2019-11-03 09:56] LABS: HEMATOCRIT 40.2 % (42.0-52.0); HEMOGLOBIN 13.8 gm/dL (14.0-18.0); MCH 29.4 pg (26.0-34.0); MCHC 34.3 g/dL (28.0-37.0); MCV 85.8 fL (80.0-100.0); PLATELET COUNT* 195 thou/uL (150-400); RBC 4.68 mil/uL (4.50-6.00); RDW-CV 13.6 % (10.5-14.5); WBC 15.3 thou/uL (4.0-11.0)
[2019-11-03 09:58] LABS: CALCIUM 8.1 mg/dL (8.5-10.1); CREATININE 1.2 mg/dL (0.6-1.3); POTASSIUM 3.7 mmol/L (3.5-5.1)
[2019-11-03 10:02] LABS: ALBUMIN 2.9 g/dL (3.4-5.0); TOTAL BILIRUBIN 2.1 mg/dL (<0.1-1.0); TOTAL PROTEIN 7.9 g/dL (6.4-8.2)
[2019-11-03 10:45] LABS: ABSOLUTE LYMPHOCYTES 1.7 thou/uL (0.8-5.3); ABSOLUTE MONOCYTES 0.5 thou/uL (0.0-1.2); ABSOLUTE NEUTROPHILS 13.2 thou/uL (1.6-8.1); PLATELET ESTIMATE ADEQUATE
[2019-11-03 12:27] LABS: URINE BILIRUBIN NEGATIVE (Negative); URINE BLOOD 2+ (Negative); URINE CLARITY CLEAR; URINE COLOR YELLOW; URINE GLUCOSE-RANDOM 2+ (Negative); URINE KETONES TRACE (Negative); URINE LEUKOCYTES-REFLEX TRACE (Negative); URINE PROTEIN 1+ (Negative); URINE SPECIFIC GRAVITY 1.025 (1.005-1.030)
[2019-11-03 12:32] LABS: URINE NITRITE-REFLEX POSITIVE (Negative)
[2019-11-03 12:43] LABS: CASTS None Seen /LPF (None Seen); CRYSTALS None Seen /LPF (None Seen); MUCUS None Seen strn/LPF (None Seen); SQUAMOUS 0-3 Few /LPF (0-3); URINE RBC >20 Many /HPF (0-2); URINE WBC-REFLEX 6-15 Few /HPF (0-5)
[2019-11-03] MEDS ORDERED: ZOFRAN ODT4 MG DISSOLVE (12:52)
[2019-11-03] MEDS ORDERED: NORCO 5-325 TA1 EAC1 PO (12:52)
[2019-11-03] MEDS ORDERED: KEFLEX500 M1 PO (12:52)
[2019-11-03 13:14] VITALS: BP 105/56
== END 2019-11-03 13:16 | disposition home or self-care (01) ==
LOC: M.ERS 09:06
PROVIDERS: Emergency Medicine Emergency Medical Services
DX: N12 Tubulo-interstitial nephritis, not specified as acute or chronic (principal); R11.2 Nausea with vomiting, unspecified; I10 Essential (primary) hypertension; E11.9 Type 2 diabetes mellitus without complications; I25.2 Old myocardial infarction; F17.210 Nicotine dependence, cigarettes, uncomplicated; Z86.011 Personal history of benign neoplasm of the brain; Z95.2 Presence of prosthetic heart valve; Z88.5 Allergy status to narcotic agent